=== PATIENT | male | born 1960 | race Caucasian/White ===

== ENCOUNTER 2019-10-01 20:06 | Emergency (ER) | payer OTHER, SELFPAY ==
[2019-10-01 20:10] VITALS: BP 162/92; PULSE 76; RESP 20; TEMP 36.8; O2SAT 96
--- NOTE | 2019-10-01 20:13 | DI.RAD.S_ITS ---
PROCEDURE: XR HAND LT MIN 3V INDICATIONS: prox 5th digit pain/swelling TECHNIQUE: 3 views of the hand(s) acquired. COMPARISON: None. FINDINGS: Bones: Fracture of the distal fifth metacarpal, with slight impaction and volar angulation. Diffuse interphalangeal, first MCP and triscaphe joint degeneration. First CMC joint degeneration. Soft tissues: No suspicious soft tissue calcifications. IMPRESSION: Distal fifth metacarpal fracture Dictated by: Humphrey Calhoun M.D. on 10/01/2019 at 21:07 Approved by: Humphrey Calhoun M.D. on 10/01/2019 at 21:08
--- NOTE | 2019-10-01 21:10 | ED_ITS ---
HPI - General Adult General Chief complaint: Extremity Injury, Upper Stated complaint: lt 5th finger injury Time Seen by Provider: 10/01/19 20:54 Source: patient Mode of arrival: Ambulatory Limitations: no limitations History of Present Illness HPI narrative: 58-year-old male here for evaluation of injuries that he sustained when he tripped and fell landing on his left hand. Has pain along the little finger side of his left hand. Has a cut at the base of his left little finger in between his little finger and ring finger. He thought maybe that he caught his finger and bent it out. Has not done anything for his symptoms prior to arrival Related Data Home Medications Medication Instructions Recorded Confirmed atorvastatin [Lipitor] 20 mg PO QDAY #0 10/31/17 bupropion HCl [Wellbutrin SR] 150 mg PO QDAY #0 10/31/17 citalopram 20 mg PO QDAY #0 10/31/17 Allergies Allergy/AdvReac Type Severity Reaction Status Date / Time No Known Allergies Allergy Uncoded 01/30/18 13:08 Review of Systems Constitutional Constitutional: Denies fever(s) Musculoskeletal Musculoskeletal: Denies tingling Comments: Left hand pain Integumentary/Breasts Comments: Cut to left little finger Neurologic Neurologic: Denies tingling Hematologic/Lymphatic Hematologic/Lymphatic: Denies easy bleeding and Denies easy bruising Patient History Medical History Hyperlipidemia (Acute) Social History marital status: lives independently: Yes Exam Initial Vital Signs Initial Vital Signs: Vital Signs Temperature 98.2 F 10/01/19 20:10 Pulse Rate 76 10/01/19 20:10 Respiratory Rate 20 10/01/19 20:10 Blood Pressure 162/92 H 10/01/19 20:10 Pulse Oximetry 96 10/01/19 20:10 Const General: cooperative and comfortable Cardio Pulses: radial pulses present on the left Skin Other: Patient with a half a cm cut at the base of the little finger in the area in between the little finger and the ring finger. No active bleeding Neuro Motor: muscle tone normal throughout Sensory Exam: no sensory deficits noted Extrem Other: Tenderness to palpation the distal and of the metacarpal of the little finger the left hand. Tenderness to movement of the MCP joint of the little finger. He can flex at the PIP D IP joint of the left little finger. The rest of his hand exam is unremarkable Psych Appearance: grossly normal and well kempt Procedures Nerve Block Nerve Block 1: Time out performed: Yes Local Anesthetic: lidocaine 1% Amount of anesthesia used (mL): 2 Side: left Nerve Blocks: hematoma block Procedure Successful: Yes Patient Tolerated Procedure: Well and No complications Complications: none Orthopedic Splinting/Casting Injury #1: Side: left Upper Extremity Injury Location: hand Upper Extremity Immobilizer: ulnar gutter Post splinting neuro exam: intact Post splinting vascular exam: intact Placed by: Provider Course Orders Ordered: ED Orders 10/01/19 20:13 XR hand LT min 3V Stat Discontinued Medications Bacitracin (Bacitracin) 1 applic TOP NOW ONE Stop: 10/01/19 21:28 Last Admin: 10/01/19 21:31 Dose: 1 applic Documented by: MMCMARCIE Lidocaine HCl (Xylocaine 1% (Pf)) 2 ml INJ NOW ONE Stop: 10/01/19 21:16 Last Admin: 10/01/19 21:31 Dose: 2 ml Documented by: TAMANNA Vital Signs Vital signs: Vital Signs - 8 hr 10/01/19 20:10 Temperature 98.2 F Pulse Rate 76 Respiratory Rate 20 Blood Pressure 162/92 H Pulse Oximetry 96 Medical Decision Making Imaging Data Hand x-ray: Radiologist's impression: [address] [address] XRay Report Signed Patient: Felix Abdi R#: [id number] : 1960Acct:[id number] Age/Sex: 58 / MDate of Service: 10/01/19 Loc: ED Accession Number: [id number] Procedure: XR hand LT min 3V Ordering Provider: Ike Ott D.O. PROCEDURE: XR HAND LT MIN 3V INDICATIONS: prox 5th digit pain/swelling TECHNIQUE: 3 views of the hand(s) acquired. COMPARISON: None. FINDINGS: Bones: Fracture of the distal fifth metacarpal, with slight impaction and volar angulation. Diffuse interphalangeal, first MCP and triscaphe joint degeneration. First CMC joint degeneration. Soft tissues: No suspicious soft tissue calcifications. IMPRESSION: Distal fifth metacarpal fracture Dictated by: Humphrey Calhoun M.D. on 10/01/2019 at 21:07 Approved by: Humphrey Calhoun M.D. on 10/01/2019 at 21:08 [facility] Narrative Medical decision making narrative: Patient is neurovascularly intact. This does appear to be a mechanical fall. The cut to the little finger does not need any intervention here in the ER. It is not deep. This is not an open fracture. This was cleaned. Vaseline gauze was placed over the area prior to placement of the ulnar gutter splint as described above. Hematoma block was successful. He was given return precautions and care instructions and follow-up instructions. He expressed understanding and agreement plan. Discharge Plan Departure Patient Disposition: Home Clinical Impression: Closed fracture of fifth metacarpal bone Qualifiers: Encounter type: initial encounter Metacarpal location: unspecified portion of metacarpal Fracture alignment: displaced Laterality: left Qualified Code(s): S62.307A - Unspecified fracture of fifth metacarpal bone, left hand, initial encounter for closed fracture Discharge Date/Time: 10/01/19 21:43 Instructions: DI for a Hand Fracture, How to Take Care of Your Splint Activity Restrictions/Additional Instructions: The splint needs to stay on and it needs to stay clean and stay dry. Tomorrow contact the [facility] group at [phone] for a follow-up in approximately 1 week so that they can transition the splint into a cast. Also recommend you contact your primary provider. Return to the emergency department for any new or worsening symptoms Prescriptions: No Action bupropion HCl [Wellbutrin SR] 150 MG tablet extended release 12 hr 150 mg PO QDAY Qty: 0 RF: 0 atorvastatin [Lipitor] 20 MG tablet 20 mg PO QDAY Qty: 0 RF: 0 citalopram 20 MG tablet 20 mg PO QDAY Qty: 0 RF: 0 Referrals: Dianna Oconnell MD [Primary Care Provider] -
[2019-10-01] MEDS: BACITRACIN OINT 0.9 GM PCKT 1 APPLIC TOP (21:31)
[2019-10-01] MEDS: LIDOCAINE 1% (PF) 2 ML INJ (21:31)
== END 2019-10-01 21:43 | disposition home or self-care (01) ==
PROVIDERS: Emergency Provider Emergency Medicine; Family Provider Family Medicine; PCP Family Medicine
DX: S62.307A Unspecified fracture of fifth metacarpal bone, left hand, initial encounter for closed fracture (principal); W01.0XXA Fall on same level from slipping, tripping and stumbling without subsequent striking against object, initial encounter
CPT/HCPCS: 64450; 73130; 99283

== ENCOUNTER → 2021-01-26 16:07 | Outpatient (CLI) | payer OTHER, SELFPAY ==
[2021-01-26] MEDS: COVID-19 VACC #1, MRNA(MOD) 100 MCG/0.5 ML VIAL IM (16:12)
== END ==
PROVIDERS: Family Provider Family Medicine; PCP Family Medicine; Visit Provider Internal Medicine
DX: Z23 Encounter for immunization (principal)
CPT/HCPCS: 0011A; 91301

== ENCOUNTER → 2021-02-24 16:04 | Outpatient (CLI) | payer OTHER, SELFPAY ==
[2021-02-24] MEDS: COVID-19 VACC #2, MRNA(MOD) 100 MCG/0.5 ML VIAL IM (16:08)
== END ==
PROVIDERS: Family Provider Family Medicine; PCP Family Medicine; Visit Provider Internal Medicine
DX: Z23 Encounter for immunization (principal)
CPT/HCPCS: 0012A; 91301

== ENCOUNTER → 2021-09-22 08:52 | Outpatient (CLI) | payer OTHER, SELFPAY ==
[2021-09-22 10:39] LABS: Add Manual Diff / Slide Review NO; Basophils Absolute Auto 0 /uL (0-100); Basophils Percent Auto 0.9 % (0-2); Eosinophils Absolute Auto 100 /uL (0-450); Eosinophils Percent Auto 1.6 % (2-4); Hematocrit 40.6 % (41-53); Hemoglobin 13.9 g/dL (13.5-17.5); Lymphocytes Absolute Auto 2100 /uL (1100-4500); Lymphocytes Percent Auto 45.8 % (25-40); Mean Corpuscular HGB Conc 34.1 % (30-36); Mean Corpuscular Hemoglobin 30.8 PG (26-34); Mean Corpuscular Volume 90.1 fL (80-100); Monocytes Absolute Auto 400 /uL (0-900); Neutrophils Absolute Auto 2000 /uL (1500-7000); Neutrophils Percent Auto 43.7 % (50-75); Platelet Count 275 X10^3/uL (150-400); Red Blood Cell Count 4.51 X10^6/uL (4.5-5.9); Red Cell Distribution Width 13.2 % (11.6-14.8); White Blood Cell Count 4.7 X10^3/uL (4.5-11.0)
[2021-09-22 10:50] LABS: Hemoglobin A1C% w Est Avg Glu 5.5 % (4.0-6.0)
[2021-09-22 11:02] LABS: Alanine Aminotransferase 24 IU/L (<50); Albumin 4.5 g/dL (3.5-5.0); Albumin Globulin Ratio 1.6 (1.0-2.8); Alkaline Phosphatase 60 U/L (38-126); Aspartate Aminotransferase 27 IU/L (17-59); BUN Creatinine Ratio 17.9 (6-22); Bilirubin Total 0.6 mg/dL (0.2-1.3); Blood Urea Nitrogen 21 mg/dL (9-20); Calcium 9.5 mg/dL (8.4-10.2); Carbon Dioxide 29 mmol/L (22-32); Chloride 104 mmol/L (98-107); Cholesterol 217 mg/dL (140-199); Estimated Glomerular Filt Rate > 60.0 mL/min (>60); Globulin 2.9 g/dL (1.7-4.1); Glucose 103 mg/dL (70-100); HDL Cholesterol 55 mg/dL (40-60); HEMOLYSIS < 15 (0-50); LDL Cholesterol Calculated 132 mg/dL (<100); Sodium 140 mmol/L (137-145); Total Protein 7.4 g/dL (6.3-8.2); Triglycerides 151 mg/dL (35-150); VLDL Cholesterol Calculated 30 mg/dL (2-30)
[2021-09-22 11:31] LABS: Prostate Specific Antigen Scrn 1.44 ng/mL (0.1-4.0)
[2021-09-22 11:36] LABS: Thyroid Stimulating Hormone 2.12 uIU/mL (0.47-4.68)
== END ==
PROVIDERS: Family Provider Family Medicine; PCP Family Medicine; Referring Provider Family Medicine; Visit Provider Family Medicine
DX: E78.5 Hyperlipidemia, unspecified (principal); Z82.49 Family history of ischemic heart disease and other diseases of the circulatory system; R73.9 Hyperglycemia, unspecified; M19.90 Unspecified osteoarthritis, unspecified site; F41.8 Other specified anxiety disorders; Z12.5 Encounter for screening for malignant neoplasm of prostate
CPT/HCPCS: 36415; 80053; 80061; 83036; 84443; 85025; G0103

== ENCOUNTER → 2021-11-07 15:24 | Outpatient (CLI) | payer OTHER, SELFPAY ==
[2021-11-07 17:46] LABS: COVID19 -Nasal RAPID Negative (Negative)
== END ==
PROVIDERS: Family Provider Family Medicine; PCP Family Medicine; Referring Provider Family Medicine; Visit Provider Family Medicine
DX: Z20.822 Contact with and (suspected) exposure to COVID-19 (principal)
CPT/HCPCS: 87635; C9803

== ENCOUNTER → 2021-11-08 13:08 | Outpatient (CLI) | payer OTHER, SELFPAY ==
--- NOTE | 2021-11-08 13:12 | DI.NM.S_ITS ---
PROCEDURE: NM MICHELL PERF SPECT R&S PHARM Rest and pharmacological stress myocardial perfusion SPECT with gated imaging and ejection fraction RADIOPHARMACEUTICAL: 24.8 mCi Tc-99m tetrafosmin IV at rest and 25.5 mCi Tc-99m tetrafosmin IV at peak effect of pharmacological stress. Bhd-ldp-bolgonyk was performed. INDICATIONS: Chest pain, unspecified TECHNIQUE: Radiopharmaceutical was injected at peak stress test, and also at rest. SPECT images were obtained. SPECT myocardial perfusion images were displayed in short axis, horizontal long axis, and vertical long axis views. Gated images were reviewed using Maxtena software. COMPARISON: None. CARDIAC STRESS: The patient exercised on the treadmill using a standard Franco protocol for 8:20, 9.1 METS, CHANTEL +7%, however did not achieve target heart rate and developed chest discomfort, shortness of breath and lightheadedness so the test was switched to a pharmacologic. A pharmacologic stress test was performed under the supervision of an attending staff, using an infusion of Regadenoson. Hemodynamic data: There is normal blood pressure and heart rate response to pharmacologic stress. Symptoms: The patient denied anginal chest pain. EKG: No diagnostic changes of ischemia; no ectopy. FINDINGS: Raw data: There is good myocardial uptake of radiotracer. No significant motion artifacts. Eznx-cu-bqjga ratio is 0.29. (normal is less than 0.38 for tetrafosmin tracer). Left ventricle function: Gated images demonstrate normal left ventricular wall thickening. No segmental wall motion abnormalities. No transient ischemic dilation; TID is 0.72 (normal less than 1.3). Left ventricle resting end diastolic volume is 117 mL. Left ventricle stress ejection fraction is > 75%; normal range is above 45%. Myocardial perfusion: There is a small size, mild intensity fixed basal inferior defect. Wall motion is preserved throughout the ventricle suggesting that this is attenuation artifact. IMPRESSION: 1. Likely low risk study. 2. Small size, mild intensity fixed inferior wall defect with preserved wall motion is suggestive of diaphragmatic attenuation. Otherwise, no evidence of ischemia or scar. 3. Exercise capacity limited due to symptoms of chest discomfort, shortness of breath and lightheadedness. 4. No ECG changes with the level of exercise achieved. 5. Maximum blood pressure 160/90 demonstrates a normal blood pressure response to exercise. Dictated by: Gia Vieyra D.O. on 11/09/2021 at 14:14 Approved by: Gia Vieyra M.D. on 11/09/2021 at 14:25
== END ==
PROVIDERS: Family Provider Family Medicine; PCP Family Medicine; Referring Provider Family Medicine; Visit Provider Family Medicine
DX: R07.9 Chest pain, unspecified (principal); R42 Dizziness and giddiness; R06.02 Shortness of breath
CPT/HCPCS: 78452; 93017; A9502; J2785

== ENCOUNTER → 2021-12-01 09:44 | Outpatient (CLI) | payer OTHER, SELFPAY ==
--- NOTE | 2021-12-01 | DI.RAD.S_ITS ---
PROCEDURE: XR CHEST 2V INDICATIONS: Other chest pain TECHNIQUE: 2 views of the chest were acquired. COMPARISON: None. FINDINGS: Surgical changes and devices: None. Lungs and pleura: Lungs are clear. No pleural effusions or pneumothorax. Mediastinum: Mediastinal contours are normal. Heart size is normal. Bones and chest wall: No suspicious bony abnormalities. Soft tissues appear unremarkable. IMPRESSION: No acute pulmonary process. Dictated by: Aleja Farfan M.D. on 12/01/2021 at 12:45 Approved by: Aleja Farfan M.D. on 12/01/2021 at 12:45
== END ==
PROVIDERS: Family Provider Family Medicine; PCP Family Medicine; Referring Provider Family Medicine; Visit Provider Family Medicine
DX: R07.89 Other chest pain (principal)
CPT/HCPCS: 71046

== ENCOUNTER → 2021-12-26 09:55 | Outpatient (CLI) | payer OTHER, SELFPAY ==
--- NOTE | 2021-12-26 09:57 | DI.US.S_ITS ---
PROCEDURE: US CAROTID DOPPLER BI INDICATIONS: DIZZINESS AND GIDDINESS,CHEST PAIN TECHNIQUE: Color and pulse Doppler interrogation was performed of both carotid systems, with image documentation and velocity measurements. COMPARISON: None. FINDINGS: Stenosis calculations are based on SRU (Society of Radiologists in Ultrasound) criteria. Right side: Brachial blood pressure: 148/95 mm Hg. Common carotid artery peak systolic velocity: 123 cm/sec. Internal carotid artery peak systolic velocity: 134 cm/sec. Internal carotid artery end diastolic velocity: 48 cm/sec. External carotid artery peak systolic velocity: 99 cm/sec. ICA/CCA peak systolic ratio: 1.1 . Vanessa scale imaging description: Mild calcific plaque at the bifurcation Percent internal carotid artery stenosis: 50-69% . Vertebral artery: Flow direction is antegrade. Left side: Brachial blood pressure: 154/84 mm Hg. Common carotid artery peak systolic velocity: 100 cm/sec. Internal carotid artery peak systolic velocity: 112 cm/sec. Internal carotid artery end diastolic velocity: 35 cm/sec. External carotid artery peak systolic velocity: 110 cm/sec. ICA/CCA peak systolic ratio: 1.1 . Vanessa scale imaging description: Mild calcific plaque at the bifurcation Percent internal carotid artery stenosis: Less than 50% . Vertebral artery: Flow direction is antegrade. IMPRESSION: 1. 50-69% right internal carotid artery stenosis. 2. Less than 50% left internal carotid artery stenosis. 3. Antegrade vertebral artery flow bilaterally. Dictated by: Christie Christie M.D. on 12/26/2021 at 14:31 Approved by: Christie Christie M.D. on 12/26/2021 at 14:35
== END ==
PROVIDERS: Family Provider Family Medicine; PCP Family Medicine; Referring Provider Family Medicine; Visit Provider Family Medicine
DX: R07.89 Other chest pain (principal); R42 Dizziness and giddiness; I65.23 Occlusion and stenosis of bilateral carotid arteries
CPT/HCPCS: 93880

== ENCOUNTER → 2022-03-01 06:51 | Outpatient (CLI) | payer OTHER, SELFPAY ==
--- NOTE | 2022-03-01 | DI.MRI.S_ITS ---
PROCEDURE: MR ANGIO NECK W CON INDICATIONS: Dizziness and giddiness TECHNIQUE: Axial and sagittal TruFISP through the neck. Coronal dynamic MRA after the administration of contrast in the arterial and venous phases, with rotating 3-dimensional maximum intensity projection (MIP) reformats constructed from subtraction images. COMPARISON: [facility], US, US CAROTID DOPPLER BI, 12/26/2021, 10:07. FINDINGS: Image quality: Excellent. Carotid system: Great vessels demonstrate a conventional anatomy as they arise from the aortic arch. The origin of the brachiocephalic artery is parietal bubbly unremarkable. Question proximal left common carotid artery stenosis. This is not definite, occurring in an area of multiple overlapping vessels. There is what appears to be a mild right carotid bifurcation/proximal internal carotid artery stenosis, less significant than what is suggested by velocity criteria measurements on the carotid duplex ultrasound. By duplex ultrasound, a 50-69% stenosis was suggested. The internal carotid arteries are widely patent up to the [place]. Posterior circulation: The left vertebral artery is dominant, and is widely patent. The right vertebral artery is somewhat diminutive throughout its course and becomes quite diminutive distally. Vertebral arteries join to form a normal appearing basilar artery. Miscellaneous: Subclavian arteries are patent throughout. Pre-contrast images through the neck demonstrate no soft tissue abnormalities. IMPRESSION: 1. Question proximal left common carotid artery stenosis. 2. No significant internal carotid artery stenosis bilaterally. 3. Diffusely diminutive right vertebral artery, quite diminutive distally. This may simply represent normal variant anatomy. Comment: Consider correlation with CT angiography of the neck vessels. Any quantitative measurements of stenosis were performed using NASCET criteria. Dictated by: Nico Yost M.D. on 03/01/2022 at 9:31 Approved by: Nico Yost M.D. on 03/01/2022 at 9:39
== END ==
PROVIDERS: Family Provider Family Medicine; PCP Family Medicine; Referring Provider Family Medicine; Visit Provider Family Medicine
DX: R42 Dizziness and giddiness (principal)
CPT/HCPCS: 70548; A9579

== ENCOUNTER → 2022-03-15 09:04 | Outpatient (CLI) | payer OTHER, SELFPAY ==
--- NOTE | 2022-03-15 | DI.CT.S_ITS ---
PROCEDURE: CT ANGIO NECK INDICATIONS: Dizziness and giddiness TECHNIQUE: After the administration of intravenous contrast, 1.5 mm axial sections acquired from the aortic arch to the [place]. Maximum intensity projection (MIP) reformats were then performed. COMPARISON: [facility], MR, MR ANGIO NECK W CON, 03/01/2022, 7:13. FINDINGS: Image quality: Excellent. Carotid system: The great vessels demonstrate a conventional anatomy as they arise from the aortic arch. The origins of the common carotid arteries appear patent. Specifically, the area of questionable narrowing of the proximal left common carotid artery suggested on MRA is demonstrated to be patent, without significant stenosis. The common carotid arteries demonstrate normal calibers and courses. There is a mild, less than 50% stenosis of the origin of the proximal right internal carotid artery. The proximal left internal carotid artery is patent. Posterior circulation: The origins of the vertebral arteries appear patent. The left vertebral artery is dominant. The right vertebral artery is diffusely diminutive. No vertebral artery stenoses. They join to form a normal appearing basilar artery. Soft tissues: Visualized neck soft tissues demonstrate no suspicious abnormalities. Thyroid gland is unremarkable . Bones: No suspicious bony lesions. Visualized cervical spine appears normally aligned. IMPRESSION: 1. The previous MRA the neck suggested the possibility a significant stenosis of the proximal left common carotid artery. This occurred in an area potential artifact. The subsequent CT angiogram demonstrates patency of the proximal left common carotid artery. 2. Less than 50% stenosis of the origin of the right internal carotid artery. Any quantitative stenosis measurements were performed using the NASCET criteria. Dictated by: Nico Yost M.D. on 03/15/2022 at 10:37 Approved by: Nico Yost M.D. on 03/15/2022 at 10:43
== END ==
PROVIDERS: Family Provider Family Medicine; PCP Family Medicine; Referring Provider Family Medicine; Visit Provider Family Medicine
DX: I65.21 Occlusion and stenosis of right carotid artery (principal); R42 Dizziness and giddiness
CPT/HCPCS: 70498; Q9967

== ENCOUNTER → 2024-07-07 07:01 | Outpatient (CLI) | payer OTHER, SELFPAY ==
--- NOTE | 2024-07-07 07:01 | DI.ECHO.S_ITS ---
[facility] : : [address] : : [place] : : [id number] : : Phone: [phone] Echocardiogram Report + + :Name: HUNTER LAYNE Study Date: 07/07/2024 Height: 70 in : :[facility] ReadingLocation: Weight: 205 lb : : Gender: Male BSA: 2.1 m2 : :: 1960 Age: 63 yrs BP: 156/97 mmHg: :Reason For Study: CHEST PAIN, ORTHOSTATIC HYPOTENSION, SYNCOPE : :Ordering Physician: YULIYA, : :VINNIE Performed By: Aby Maldonado : :Referring: VINNIE DWYER : + + Interpretation Summary 1. The left ventricle contractility is normal. Estimate ejection fraction is greater than 55% with no segmental wall motion abnormalities. No LVH. Grade 1 diastolic dysfunction. 2. The right ventricular contractility is normal. 3. All cardiac chambers are of normal size. 4. No significant valvular abnormalities. 5. No obvious intracardiac shunts. 6. No obvious intracardiac masses nor thrombi. 7. No hemodynamically significant pericardial effusion. 8. Low right-sided filling pressures. Conclusion: Normal biventricular systolic function with no significant valvular abnormalities. Procedure: A two-dimensional transthoracic echocardiogram with color flow and Doppler was performed. The study quality was technically adequate. There is no prior echocardiogram noted for this patient. The patient was in sinus rhythm with heart rates between 65-67 bpm during the exam. Left Ventricle: The left ventricle is normal in size and wall thickness. The ejection fraction is estimated to be 55-60%. Right Ventricle: The right ventricle is normal in size and function. Atria: The left atrial size is normal. Right atrial size is normal. There is no Doppler evidence for an interatrial shunt. Mitral Valve: The mitral valve is normal in structure and function. There is trace mitral regurgitation. Aortic Valve: The aortic valve is trileaflet. The aortic valve opens well. There is no aortic valve stenosis. There is no aortic regurgitation. Tricuspid Valve: The tricuspid valve is normal in structure and function. There is trace tricuspid regurgitation. Pulmonary artery pressures cannot be estimated because of the lack of a measurable TR jet velocity. Pulmonic Valve: The pulmonic valve leaflets are thin and pliable; valve motion is normal. There is no pulmonic valvular regurgitation. Great Vessels: The aortic root is normal size. The dimensions of the ascending aorta are normal. The IVC is of normal diameter and collapses greater than 50% with a sniff. This suggests a low right atrial pressure of 3 mm Hg. Pericardium/ Pleura There is no pericardial effusion. There is no pleural effusion. MMode/2D Measurements & Calculations LVIDd: 4.9 cm LVOT diam: 2.2 cm LVIDs: 3.3 cm Ao root diam: 3.7 cm FS: 32.1 % asc Aorta Diam: 3.4 cm EPSS: 0.70 cm Ao Arch Diam (Prox Trans): 3.0 cm IVSd: 0.90 cm LVPWd: 0.97 cm LV lubin. diameter/BSA (cm/m^2): 2.3 LV sys. diameter/BSA (cm/m^2): 1.6 LA A2 area: 16.9 cm2 RA long axis: 4.2 cm LA A4 area: 17.3 cm2 RA area: 15.0 cm2 LA length (vol): 5.4 cm RA vol: 45.6 ml LA vol: 45.6 ml RA : 21.6 ml/m2 LA vol index: 21.6 ml/m2 IVC diam: 1.8 cm RVD1 (basal): 3.7 cm RVD2 (mid): 3.3 cm TAPSE: 1.9 cm Doppler Measurements & Calculations Ao V2 max: 138.0 cm/sec LVOT Max Lennox: 96.8 cm/sec Ao V2 mean: 100.6 cm/sec LV V1 max P.8 mmHg Ao max P.6 mmHg LV V1 VTI: 19.8 cm Ao mean P.5 mmHg AYDIN(I,D): 2.6 cm2 Ao V2 VTI: 30.2 cm AYDIN(V,D): 2.7 cm2 sev ratio: 0.65 AYDIN indexed to BSA (cm^2/m^2): 1.2 MV E max lennox: 59.1 cm/sec PA V2 max: 96.7 cm/sec MV A max lennox: 76.3 cm/sec PA V2 mean: 75.2 cm/sec MV E/A: 0.77 PA mean P.4 mmHg Med Peak E' Lennox: 7.2 cm/sec PA pr(Accel): 36.2 mmHg E/E' med: 8.2 Lat Peak E' Lennox: 9.1 cm/sec E/E' lat: 6.5 E/e' average: 7.4 MV dec time: 0.17 sec SV(LVOT): 77.3 ml Reading Physician:
== END ==
LOC: ECHO 07:01
PROVIDERS: Family Provider Family Medicine; PCP Family Medicine; Referring Provider Family Medicine; Visit Provider Family Medicine
DX: I95.1 Orthostatic hypotension (principal); R07.9 Chest pain, unspecified; R42 Dizziness and giddiness; R55 Syncope and collapse; Z82.49 Family history of ischemic heart disease and other diseases of the circulatory system
CPT/HCPCS: 93306

== ENCOUNTER → 2024-08-06 06:58 | Outpatient (CLI) | payer OTHER, SELFPAY ==
--- NOTE | 2024-08-06 | DI.US.S_ITS ---
PROCEDURE: US CAROTID DOPPLER BI INDICATIONS: DIZZINESS TECHNIQUE: Color and pulse Doppler interrogation was performed of both carotid systems, with image documentation and velocity measurements. COMPARISON: [facility], , US CAROTID DOPPLER BI, 12/26/2021, 10:07. FINDINGS: Stenosis calculations are based on SRU (Society of Radiologists in Ultrasound) criteria. Right side: Brachial blood pressure: 130/70 mm Hg. Common carotid artery peak systolic velocity: 94 cm/sec. Internal carotid artery peak systolic velocity: 188 cm/sec. Internal carotid artery end diastolic velocity: 61 cm/sec. External carotid artery peak systolic velocity: 126 cm/sec. ICA/CCA peak systolic ratio: 2.1 . Vanessa scale imaging description: Significant atherosclerotic plaques Percent internal carotid artery stenosis: 50-69% stenosis . Vertebral artery: Flow direction is antegrade. Left side: Brachial blood pressure: 123/76 mm Hg. Common carotid artery peak systolic velocity: 121 cm/sec. Internal carotid artery peak systolic velocity: 90 cm/sec. Internal carotid artery end diastolic velocity: 33 cm/sec. External carotid artery peak systolic velocity: 123 cm/sec. ICA/CCA peak systolic ratio: 0.7 . Vanessa scale imaging description: Mild atherosclerotic plaques Percent internal carotid artery stenosis: Less than 50% stenosis . Vertebral artery: Flow direction is antegrade. IMPRESSION: 1. There is 50-69% stenosis of the right proximal ICA. The velocity is increased compared to prior, suggestive of worsening stenosis. 2. Less than 50% stenosis of the left proximal ICA. Dictated by: Ha Hanley M.D. on 08/06/2024 at 15:00 Approved by: Ha Hanley M.D. on 08/06/2024 at 15:06
== END ==
LOC: US 06:59
PROVIDERS: Family Provider Family Medicine; PCP Family Medicine; Referring Provider Family Medicine; Visit Provider Family Medicine
DX: I73.9 Peripheral vascular disease, unspecified (principal); R42 Dizziness and giddiness; I65.23 Occlusion and stenosis of bilateral carotid arteries
CPT/HCPCS: 93880

== ENCOUNTER → 2025-08-14 09:48 | Outpatient (CLI) | payer OTHER, SELFPAY ==
--- NOTE | 2025-08-14 09:51 | DI.RAD.S_ITS ---
PROCEDURE: XR LUMBAR SPINE 2-3V INDICATIONS: BACK/SHOULDER PAIN TECHNIQUE: 3 views of the lumbar spine were acquired. COMPARISON: None. FINDINGS: Lumbar spine curvature and alignment: Slight rightward curve appreciated. Bones: There are no osseous abnormalities. Disc spaces: Mild T11-T12 through L2-3 degenerative disc disease noted. Mild L4-5 moderate L5-S1 degenerative facet disease Soft tissues: No soft tissue swelling, calcification or mass. IMPRESSION: Degeneration Dictated by: Al Quesada M.D. on 08/17/2025 at 12:15 Approved by: Al Quesada M.D. on 08/17/2025 at 12:17
--- NOTE | 2025-08-14 09:51 | DI.RAD.S_ITS ---
PROCEDURE: XR SHOULDER LT MIN 2V INDICATIONS: BACK/SHOULDER PAIN TECHNIQUE: Three views of the left shoulder were acquired. COMPARISON: None. FINDINGS: Bones: Minimally displaced old ununited fracture of the superior clavicle appreciated. Acromioclavicular and glenohumeral joints: Normal in width and alignment without arthritic change Soft tissues: No soft tissue swelling, calcification or mass. IMPRESSION: Minimally displaced old ununited fracture superior clavicle Dictated by: Al Quesada M.D. on 08/17/2025 at 12:17 Approved by: Al Quesada M.D. on 08/17/2025 at 12:17
== END ==
PROVIDERS: Family Provider Family Medicine; PCP Family Medicine; Referring Provider Family Medicine; Visit Provider Family Medicine
DX: M25.512 Pain in left shoulder (principal); M51.34 Other intervertebral disc degeneration, thoracic region; M51.360 Other intervertebral disc degeneration, lumbar region with discogenic back pain only; M47.816 Spondylosis without myelopathy or radiculopathy, lumbar region; M47.817 Spondylosis without myelopathy or radiculopathy, lumbosacral region; S42.002S Fracture of unspecified part of left clavicle, sequela; G89.29 Other chronic pain
CPT/HCPCS: 72100; 73030

== ENCOUNTER → 2025-09-22 08:11 | Outpatient (CLI) | payer OTHER, SELFPAY ==
--- NOTE | 2025-09-22 08:13 | DI.MRI.S_ITS ---
PROCEDURE: MR SHOULDER LT WO CON INDICATIONS: evaluate for RCT TECHNIQUE: Noncontrast oblique coronal T2 fast spin echo with fat saturation, oblique sagittal T1 spin echo and T2 fast spin echo with fat saturation, axial T1 spin echo and T2 fast spin echo with fat saturation through the shoulder. COMPARISON: None. FINDINGS: Image quality: Excellent. Rotator cuff: Low to moderate grade articular and bursal surface partial thickness tear involving distal supraspinatus at its insertion on humeral head is seen extending to musculotendinous junction. Focal full-thickness perforation involving posterior fibers of distal supraspinatus approximately 1 cm from its insertion on humeral head is seen with up to 4 mm medial retraction of torn tendon fibers and a fluid-filled gap measures 4 mm in AP dimension. Distal infraspinatus tendinosis. Low-grade intrasubstance partial-thickness tear involving distal subscapularis is seen. Sagittal images demonstrate [id number] supraspinatus muscle atrophy. Bones and bursae: No bone marrow contusions or fractures. [id number] acromioclavicular joint and glenohumeral joint osteoarthritic changes are seen. Type 2 acromion without an os acromiale. Moderate amount of subacromial subdeltoid bursal fluid, no loose bodies. Capsule and soft tissues: T2 hyperintense signal and fraying involving posterior superior glenoid labrum concerning for subtle posterior superior labral tear. The long head of biceps tendon within normal limits. IMPRESSION: 1. Low to moderate grade articular and bursal surface partial thickness tear involving distal supraspinatus extending to musculotendinous junction with focal full- thickness perforation involving posterior fibers of distal supraspinatus approximately 1 cm from its insertion on humeral head and up to 4 mm medial retraction of torn tendon fibers. [id number]-[id number] supraspinatus muscle atrophy. 2. Distal infraspinatus tendinosis. Low-grade intrasubstance partial-thickness tear involving distal subscapularis. 3. [id number] acromioclavicular joint and glenohumeral joint osteoarthritis. No fracture or dislocation. Moderate amount of subacromial subdeltoid bursal fluid, no loose bodies. 4. Finding is concerning for posterior superior glenoid labral tear. Dictated by: Jim Hollingsworth M.D. on 09/22/2025 at 10:04 Approved by: Jim Hollingsworth M.D. on 09/22/2025 at 10:09
== END ==
LOC: MRI 08:12
PROVIDERS: PCP Family Medicine; Referring Provider Physician Assistant Surgical; Visit Provider Physician Assistant Surgical
DX: M75.112 Incomplete rotator cuff tear or rupture of left shoulder, not specified as traumatic (principal); M19.012 Primary osteoarthritis, left shoulder; R29.898 Other symptoms and signs involving the musculoskeletal system; M25.512 Pain in left shoulder; G89.29 Other chronic pain
CPT/HCPCS: 73221